=== PATIENT | female | born 1945 | race Two or more races ===

== ENCOUNTER 2023-07-06 13:13 | Emergency (ER) | payer OTHER, MEDICAID ==
[~2023-07-06] VITALS: Ht 157.5 cm; Wt 52.2 kg
[2023-07-06] MEDS ORDERED: IV NORMAL SALINE 1000 ML BAG IV ONE (13:45)
[2023-07-06 13:53] LABS: BASOPHILS # (AUTO) 0.1 K/UL (0.0-0.2); BASOPHILS % (AUTO) 1.1 % (0.0-2.0); EOSINOPHILS # (AUTO) 0.2 K/uL (0.0-0.7); EOSINOPHILS % (AUTO) 1.4 % (0.0-7.0); HEMOGLOBIN 13.9 g/dL (10.9-14.3); LYMPHOCYTES # (AUTO) 2.2 K/uL (0.8-4.8); LYMPHOCYTES % (AUTO) 19.8 % (20.5-51.5); MEAN CORPUSCULAR HEMOGLOBIN 32.3 uug (24.7-32.8); MEAN CORPUSCULAR HGB CONC 34 g/dL (32.3-35.6); MEAN CORPUSCULAR VOLUME 95.1 fL (75.5-95.3); MONOCYTES # (AUTO) 0.7 K/uL (0.1-1.30); NEUTROPHILS # (AUTO) 7.9 K/uL (1.8-8.9); NEUTROPHILS % (AUTO) 71.7 % (38.5-71.5); PLATELET COUNT (AUTO) 181 K/uL (179-408); RED BLOOD CELL COUNT(AUTO) 4.31 MIL/uL (3.63-4.92); RED CELL DISTRIBUTION WIDTH 13.1 % (12.3-17.7)
[2023-07-06] MEDS ORDERED: PROCHLORPERAZINE EDISYLATE 10 MG/2 ML VIAL IV ONE (14:00)
[2023-07-06 14:03] LABS: DIFFERENTIAL COMMENT 1
[2023-07-06 14:05] LABS: CALCIUM 10.3 mg/dL (8.5-10.1); CARBON DIOXIDE 26 mmol/L (21-32); CHLORIDE 101 mmol/L (98-107); CREATININE 0.8 mg/dL (0.6-1.3); GLUCOSE 160 mg/dL (74-106); POTASSIUM 3.9 mmol/L (3.5-5.1); SODIUM SERUM 139 mmol/L (136-145); UREA NITROGEN, BLOOD 25 mg/dL (7-18)
[2023-07-06] MEDS ORDERED: PROCHLORPERAZINE EDISYLATE 10 MG/2 ML VIAL ONE (14:18)
[2023-07-06] MEDS ORDERED: IV NS 1000 ML 1,000 ML IV ONE (15:15)
[2023-07-06] MEDS ORDERED: MAGNESIUM SULFATE/D5W 300 ML ONE (15:21)
[2023-07-06 15:32] LABS: ALBUMIN 4.1 g/dL (3.4-5.0); BILIRUBIN,DIRECT 0.3 mg/dL (0.0-0.2); BILIRUBIN,TOTAL 0.7 mg/dL (0.2-1.0); TOTAL PROTEIN, SERUM 8.1 g/dL (6.4-8.2)
[2023-07-06] MEDS: MAGNESIUM SULFATE/D5W 100 ML IV SCH ×3 (15:32→17:14)
[2023-07-06] MEDS ORDERED: METF500T67 (15:56)
[2023-07-06] MEDS ORDERED: LOSA100T3 (15:56)
[2023-07-06] MEDS ORDERED: AMLO10TA59 PO (15:56)
[2023-07-06] MEDS ORDERED: ATOR20TA (15:56)
[2023-07-06] MEDS ORDERED: FLAS1EAC2 TP (17:57)
[2023-07-06] MEDS ORDERED: ONDA4TAB5 PO (17:57)
[2023-07-06] MEDS ORDERED: FLAS1KIT2 TP (17:57)
[2023-07-06 18:36] VITALS: BP 128/72; TEMP 98.2; O2SAT 97
[2023-07-10 03:09] LABS: HEPATITIS A AB, IgM Negative (Negative); HEPATITIS B SURFACE AG Negative (Negative); HEPATITIS C VIRUS ANTIBODY Non Reactive (Non Reactive)
== END 2023-07-06 18:38 | disposition home or self-care (01) ==
LOC: ER 13:13
DX: R10.13 Epigastric pain (principal); R11.10 Vomiting, unspecified; R74.01 Elevation of levels of liver transaminase levels; E11.9 Type 2 diabetes mellitus without complications; R42 Dizziness and giddiness; Z79.899 Other long term (current) drug therapy; Z20.822 Contact with and (suspected) exposure to COVID-19
CPT/HCPCS: 99285; 96365; 76705; 96366; 96361; 96375; 87426; 80076; 80048; 83735; 85025; 84484; 36415; 93005; 86803; 87340; 86709; J3475; J0780; J7040 ×2; A4606; A4663